=== PATIENT | male | born 1950 | race Caucasian/White ===

== ENCOUNTER 2024-12-22 08:22 | Emergency (ER) | payer MEDICARE, SELFPAY ==
[2024-12-22] VITALS (7 sets, daily range): BP systolic 144–179; BP diastolic 70–93; PULSE 58–70; RESP 14–28; TEMP 36.7–36.9; O2SAT 96–99; BMI 25.0
--- NOTE | 2024-12-22 08:24 | ECG_ITS ---
APPROVED REPORT Exam: Resting ECG HR:63 bpm ECG Measurements Heart Rate 63 AXES [place] 176 P 60 QRSd 107 QRS -29 QT 415 T -3 QTc 423 Conclusion SINUS RHYTHM WITH OCCASIONAL VENTRICULAR PREMATURE COMPLEXES BORDERLINE LEFT AXIS DEVIATION [QRS AXIS < -20] No STEMI Electronically signed by : RAÚL HERNANDEZ, 12/22/2024 16:01:04
--- NOTE | 2024-12-22 08:29 | XR_ITS ---
FINAL REPORT CLINICAL HISTORY: chest pain, hypertension FINDINGS: CHEST 2 VIEWS PA AND LATERAL The heart is normal in size. The mediastinum is unremarkable. The lungs are clear. There is no pneumothorax. IMPRESSION: No acute process. Reviewed, Interpreted and Dictated by Frank Rodríguez MD Transcribed by Audrey Nicholson Authenticated and [facility]
[2024-12-22 08:37] LABS: Basophils % 0.5 % (0.1-2.0); Eosinophils # 0.1 K/mm3 (0.0-0.4); Eosinophils % 1.5 % (0.1-12.0); Hematocrit 42.4 % (42.0-52.0); Hemoglobin 14.6 g/dL (14.1-18.0); Lymphocytes # 1.1 K/mm3 (0.7-4.5); Lymphocytes % 16.5 % (10-50); Mean Corpuscular HGB Conc 34.4 g/dL (31.8-35.4); Mean Corpuscular Hemoglobin 29.4 pg (27.0-31.2); Mean Corpuscular Volume 85.5 fl (80-94); Mean Platelet Volume 9.5 fl (7.4-10.4); Monocytes # 0.6 K/mm3 (0.1-1.0); Monocytes % 8.8 % (1.7-9.3); Neutrophils # 4.7 K/mm3 (1.8-7.8); Neutrophils % 72.4 % (37.0-80.0); Platelet Count 268 K/mm3 (142-424); Red Blood Count 4.96 M/mm3 (4.60-6.20); Red Cell Distribution Width 12.5 % (11.5-17.5); White Blood Count 6.5 K/mm3 (4.8-10.8)
[2024-12-22 08:43] LABS: Chloride 104 mmol/L (98-107)
[2024-12-22 08:44] LABS: Albumin Level 4.6 g/dl (3.5-5.0); Potassium 3.9 mmoL/L (3.5-5.1); Sodium 136 mmol/L (136-145)
[2024-12-22 08:46] LABS: Alanine Aminotransferase 23 U/L (12-78); Aspartate Amino Transferase 33 U/L (17-59); Blood Urea Nitrogen 21 mg/dl (9-20); Creatinine Clearance Estimated 75 mL/min (50-200); Estimated Glomerular Filt Rate 73 ml/min (>60); GFR (African American) 88 ML/MIN (>60)
[2024-12-22 08:47] LABS: Albumin/Globulin Ratio 1.6 (1.1-1.8); Alkaline Phosphatase 67 U/L (38-126); Anion Gap 9.9 mEq/L (5-15); Bilirubin,Total 2.1 mg/dl (0.2-1.3); Calcium 9.3 mg/dl (8.4-10.2); Carbon Dioxide 26 mmol/L (22.0-30.0); Globulin 2.8 g/dL (1.3-3.2); Glucose 93 mg/dl (74-100); Total Protein,Serum 7.4 g/dl (6.3-8.2)
[2024-12-22 09:04] LABS: Troponin I < 0.01 ng/ml (0.00-0.034)
--- NOTE | 2024-12-22 09:13 | [facility].EDCP ---
Discharge Plan Disposition Patient Disposition: Home, Self-Care Condition: Good Referrals Follow up/Referrals: Twin Elliott MD [Primary Care Provider] - See instructions Joseph Mast MD [Staff Physician] - See instructions Neftali Mcnulty MD [Staff Physician] - See instructions Activity Restrictions/Add. Instructions Additional Instructions/Restrictions: You were evaluated in the emergency department today. Please keep an eye on your blood pressure at home. I recommend taking it twice a day and then following up with your primary care provider as well as with cardiology with a log of blood pressures. They can help adjust your medications as appropriate for high blood pressure. Please call cardiology to schedule an appointment this week. Return to the emergency department right away for new or worsening symptoms. Clinical Impressions Clinical Impression: Chest pain, High blood pressure Instructions Patient Instructions: DI for High Blood Pressure, DI for Atypical Chest Pain Print Language Print Language: Danish Discharge ED Provider: Nory Olmos HPI General Chief Complaint: Chest Pain Stated Complaint: Hypertension Time Seen by Provider: 12/22/24 08:29 Mode of Arrival: EMS Source of Information: Patient and EMS Limitations: No Limitations Description of Symptoms (Recalled from ER Triage Doc. by RN): chest pain started @ 0500 this morning. radiated to left arm. pt was hypertensive. History of Present Illness HPI narrative: This patient is a 74-year-old male who denies significant past medical history presenting to the emergency department for evaluation concern for chest pain radiating down his left arm and high blood pressure reading at home. According the patient, he woke up around 3:00 this morning feeling fine, and then around 5:00 this morning he started having this unusual sensation in his chest like he could feel it pounding as well as a heavy sensation in his left arm. This resolved spontaneously just prior to arrival. He arrived by EMS who noted initial blood pressure with systolic in the 210s. They administered 324 mg of aspirin and were about to administer nitroglycerin, but repeat blood pressure demonstrated systolic in the 150s and the patient was then asymptomatic. No other recent concerns at this time, such as headache, vision changes, unilateral weakness, gait disturbance, back pain, abdominal pain, shortness of breath, or other issues. No recent falls or injuries. Related Data Allergies Allergy/AdvReac Type Severity Reaction Status Date / Time No Known Allergies Allergy Verified 12/22/24 08:31 [facility] Disclaimer: The information contained in this section may have been updated after the patient was seen, as this information can be updated by other users. Social History Smoking Status: Never smoker alcohol intake: never current occupational status: employed and retired Travel in the last 8 weeks: None ROS Obtained: Yes All systems reviewed & no additional complaints except as documented Physical Exam General General appearance: alert and in no apparent distress Head Head exam: atraumatic and normocephalic Eye Eye exam: Present normal appearance, PERRL and EOMI ENT ENT exam: Present normal exam, normal oropharynx, mucous membranes moist and normal external ear exam Neck Neck exam: Present normal inspection, full ROM and trachea midline; Absent tenderness Chest Chest inspection: Present normal inspection and symmetric chest wall rise; Absent tenderness Respiratory Respiratory exam: Present normal lung sounds bilaterally; Absent respiratory distress, wheezes, stridor or accessory muscle use Cardiovascular Cardiovascular exam: Present regular rate and normal rhythm Abdominal Exam Abdominal exam: Present soft; Absent distention, tenderness or guarding Extremities Exam Extremities exam: Present normal inspection, full ROM and normal capillary refill; Absent tenderness or edema Back Exam Back exam: Present normal inspection and full ROM; Absent tenderness Neurological Exam Neurological exam: Present alert, oriented X3, CN II-XII intact and normal gait; Absent motor sensory deficit Psychiatric Psychiatric exam: Present normal affect and normal mood Skin Skin exam: Present warm and dry HEART Score HEART Score HEART Score assessment performed?: Yes History (anamnesis): Moderately suspicious ECG: Normal Age: >65 years Risk factors: 1-2 risk factors Troponin: </= normal limit HEART Score: 4 Critical Care Critical Care Time Critical Care Time: No Medical Decision Making Nav Inquiry Pt receiving controlled substance: No Vital Signs Vital Signs: 12/22/24 08:22 12/22/24 09:00 12/22/24 09:31 Temperature 98.1 F Temperature Source Oral Pulse Rate 58 L 64 Pulse Rate [Right] 67 Respiratory Rate 20 15 28 H Blood Pressure 155/93 H 160/85 H Blood Pressure [Right Arm] 144/70 H Blood Pressure Mean Blood Pressure Mean [Right Arm] 94 02 Sat by Pulse Oximetry 98 96 98 Oxygen Delivery Method Room Air 12/22/24 10:00 12/22/24 10:30 12/22/24 11:00 Temperature Temperature Source Pulse Rate 62 68 Pulse Rate [Right] Respiratory Rate 14 15 Blood Pressure 179/91 H 149/78 H 145/82 H Blood Pressure [Right Arm] Blood Pressure Mean 109 Blood Pressure Mean [Right Arm] 02 Sat by Pulse Oximetry 97 99 Oxygen Delivery Method 12/22/24 12:08 12/22/24 12:08 Temperature 98.5 F Temperature Source Pulse Rate 70 68 Pulse Rate [Right] Respiratory Rate 20 Blood Pressure 150/80 H Blood Pressure [Right Arm] Blood Pressure Mean Blood Pressure Mean [Right Arm] 02 Sat by Pulse Oximetry Oxygen Delivery Method Room Air Lab Data Labs: Lab Results 12/22/24 08:20: WBC 6.5, RBC 4.96, Hgb 14.6, Hct 42.4, MCV 85.5, MCH 29.4, MCHC 34.4, RDW 12.5, Plt Count 268, MPV 9.5, Neut % (Auto) 72.4, Lymph % (Auto) 16.5, Harmon % (Auto) 8.8, Eos % (Auto) 1.5, Baso % (Auto) 0.5, Neut # (Auto) 4.7, Lymph # (Auto) 1.1, Harmon # (Auto) 0.6, Eos # (Auto) 0.1, Baso # (Auto) 0.0, Sodium 136, Potassium 3.9, Chloride 104, Carbon Dioxide 26, Anion Gap 9.9, BUN 21 H, Creatinine 1.00, Estimated Creat Clear 75, Estimated GFR 73, Est GFR ( Amer) 88, Glucose 93, Calcium 9.3, Total Bilirubin 2.1 H, AST 33, ALT 23, Alkaline Phosphatase 67, Troponin I < 0.01, Total Protein 7.4, Albumin 4.6, Globulin 2.8, Albumin/Globulin Ratio 1.6 12/22/24 10:30: D-Dimer 0.47 12/22/24 11:05: Troponin I < 0.01 12/22/24 08:20 12/22/24 08:20 Response Orders (Tests/Meds): ORDERS Category Date Time Status CXR 2 view (NOT portable) [XR chest 2V] Stat Exams 12/22/24 08:29 Completed Complete Blood Count Auto Diff Stat Lab 12/22/24 08:20 Completed Comprehensive Metabolic Panel Stat Lab 12/22/24 08:20 Completed D-Dimer Stat Lab 12/22/24 10:30 Completed Trop I [Troponin I] Stat Lab 12/22/24 08:20 Completed Troponin I Q3H Lab 12/22/24 11:05 Completed ECG Data Tracing #1: Attestation: I reviewed this ECG and interpreted as documented below: ECG Narrative: Normal sinus rhythm with a ventricular of 63 bpm. PVC noted. No acute ST changes concerning for ischemia. Left axis deviation. Normal intervals. ECG initial impression date: 12/22/24 ECG initial impression time: 08:29 MDM Narrative Medical Decision Narrative: In summary, this patient is a 74-year-old male presenting to the Emergency Department for evaluation of chest pain radiating down the left arm that started around 5:00 this morning. He also had high blood pressure with EMS. Differential diagnoses considered include but are not limited to ACS, hypertensive urgency, hypertensive emergency, dysrhythmia, anxiety, aortic dissection. Ruling out the most morbid conditions drove assessment. On exam, the patient is well-appearing. He is completely asymptomatic at this time with reassuring exam and normal vitals on cardiac telemetry with the exception of mild hypertension with systolics in the 150s. He has good pulses in the bilateral upper extremities and no murmurs heard on cardiac auscultation. Exam is normal. EKG obtained is reassuring. He already received aspirin prior to arrival with EMS, who helped provide history today. They noted blood pressure was significantly elevated, however it is currently improved. Workup included CBC, CMP, troponin, two-view chest x-ray, EKG. I considered obtaining CT angiogram of the chest, however based on reassuring exam and the fact that the patient is now asymptomatic, I do not feel that dissection or other acute aortic pathology is likely. I independently interpreted chest x-ray prior to the radiologist read and noted no acute focal consolidation, no pneumothorax. Please see their read for final interpretation. Labs were obtained that demonstrated negative D-dimer, reassuring CBC with no significant leukocytosis, no anemia. Chemistry is reassuring with negative troponin. Given negative D-dimer, I do not feel that further workup of PE is indicated. On multiple subsequent reassessments, patient had no symptoms. Blood pressure persistently hypertensive, but not above 200 like it was with EMS. He was mostly in the 150s systolic. No tachycardia. He states he is ready to go, but he is agreeable to stay for a second troponin. At 0915, patient was placed in ED observation status pending second troponin to determine whether or not the patient would be appropriate for discharge versus admission. The patient was provided serial reevaluations and cardiac monitoring while awaiting ultimate disposition. On multiple subsequent reassessments, blood pressure continues to be improved with reassuring exam and no symptoms. Given reassuring workup and exam, it is felt that the patient is appropriate for discharge at 1200. Total ED observation time was 2 hours and 45 minutes. Patient was given instructions for close follow-up with primary care as well as with cardiology, instructions to keep a blood pressure log at home, and strict return precautions. He was discharged after all questions were answered.
[2024-12-22 10:49] LABS: D-Dimer 0.47 ug/mL (0.0-0.5)
[2024-12-22 12:00] LABS: Troponin I < 0.01 ng/ml (0.00-0.034)
== END 2024-12-22 12:09 | disposition home or self-care (01) ==
PROVIDERS: Emergency Provider Emergency Medicine; PCP Family Medicine
DX: R07.9 Chest pain, unspecified (principal); I10 Essential (primary) hypertension; M79.602 Pain in left arm
CPT/HCPCS: 71046; 80053; 84484; 85025; 85378; 93005; 99284

== ENCOUNTER 2025-03-08 10:18 | Outpatient (CLI) | payer MEDICARE, SELFPAY ==
--- NOTE | 2025-03-08 10:21 | XR_ITS ---
FINAL REPORT CLINICAL HISTORY: lt knee pain x yrs FINDINGS: LEFT KNEE Three views demonstrate no acute fracture or dislocation. There is moderate narrowing of the medial compartment joint space. There is subchondral sclerosis. Osteophyte formation at the medial joint margin is noted. There is a small osteophyte along the undersurface of the patella. IMPRESSION: Moderate changes of osteoarthritis. Reviewed, Interpreted and Dictated by Frank Rodríguez MD Transcribed by Tete Suh Authenticated and . [facility]
--- NOTE | 2025-03-08 10:21 | XR_ITS ---
FINAL REPORT CLINICAL HISTORY: knee pain x yrs FINDINGS: RIGHT KNEE Three views demonstrate no acute fracture or dislocation. There is moderately advanced medial compartment joint space narrowing. There is subchondral sclerosis. There is osteophyte formation at the medial joint margin. There is mild varus angulation of the knee. A small joint effusion is noted. IMPRESSION: Advanced changes of osteoarthritis. Small joint effusion. Reviewed, Interpreted and Dictated by Frank Rodríguez MD Transcribed by Tete Suh Authenticated and [facility]
== END 2025-03-08 23:59 | disposition home or self-care (01) ==
LOC: RAD 10:19
PROVIDERS: PCP Family Medicine; Visit Provider Physician Assistant Surgical
DX: M25.561 Pain in right knee (principal); M25.562 Pain in left knee
CPT/HCPCS: 73562